=== PATIENT | female | born 1985 | race Two or more races ===

== ENCOUNTER 2019-01-08 23:07 | Emergency (ER) | payer MEDICAID ==
[~2019-01-08] VITALS: Ht 154.9 cm; Wt 53.1 kg
[2019-01-09] MEDS ORDERED: IPRATROPIUM BROM 0.5 MG/2.5ML INH SOL NEB ONE (00:15)
[2019-01-09] MEDS ORDERED: ALBUTEROL SULF 2.5 MG/0.5ML(0.5%) NEB SOLN NEB ONE (00:15)
== END 2019-01-09 00:52 | disposition home or self-care (01) ==
LOC: ER 23:11
DX: J20.9 Acute bronchitis, unspecified (principal); J45.909 Unspecified asthma, uncomplicated
CPT/HCPCS: 94640; 99283; J7611; J7644